=== PATIENT | female | born 1980 | race African-American/Black ===

== ENCOUNTER 2017-03-06 15:32 | Emergency (ER) | payer OTHER ==
[~2017-03-06] VITALS: Ht 162.6 cm; Wt 77.0 kg
[2017-03-06 17:29] VITALS: BP 128/85
== END 2017-03-06 18:07 | disposition home or self-care (01) ==
LOC: EMS 15:33
DX: S80.861A Insect bite (nonvenomous), right lower leg, initial encounter (principal); S80.862A Insect bite (nonvenomous), left lower leg, initial encounter; Z88.5 Allergy status to narcotic agent; Z87.891 Personal history of nicotine dependence; W57.XXXA Bitten or stung by nonvenomous insect and other nonvenomous arthropods, initial encounter; Y93.89 Activity, other specified; Y92.89 Other specified places as the place of occurrence of the external cause; Y99.8 Other external cause status
CPT/HCPCS: 99281; 99283